=== PATIENT | female | born 1970 | race Hispanic/Latino ===

== ENCOUNTER 2019-12-05 00:27 | Emergency (ER) | payer SELFPAY ==
[~2019-12-05] VITALS: Ht 162.6 cm; Wt 74.8 kg
[2019-12-05] MEDS ORDERED: KETOROLAC TROMETHAMINE 30 MG/ML VIAL IV STA (00:37)
[2019-12-05] MEDS ORDERED: CYCLOBENZAPRINE HCL 10 MG TAB PO ONE (00:45)
[2019-12-05 02:38] VITALS: BP 132/68
== END 2019-12-05 03:00 | disposition home or self-care (01) ==
LOC: ER 00:32
DX: M54.32 Sciatica, left side (principal); I10 Essential (primary) hypertension; E11.9 Type 2 diabetes mellitus without complications; E78.5 Hyperlipidemia, unspecified
CPT/HCPCS: 36415; 72100; 73502; 84702; 99283; J1885